=== PATIENT | female | born 1935 | race Caucasian/White ===

== ENCOUNTER → 2016-10-30 | Outpatient (REF) | payer MEDICARE | LOC: M LAB REF 16:38 | PROVIDERS: ATTEND Internal Medicine | DX: G60.9 Hereditary and idiopathic neuropathy, unspecified (principal) ==

== ENCOUNTER 2017-02-10 20:05 | Emergency (ER) | payer MEDICARE ==
[~2017-02-10] VITALS: Ht 165.1 cm; Wt 95.5 kg
[2017-02-10] MEDS ORDERED: TYLE500T78 PO (20:25)
[2017-02-10] MEDS ORDERED: FLUT1SPR2 (20:25)
[2017-02-10] MEDS ORDERED: PANT40TA2 PO (20:25)
[2017-02-10] MEDS ORDERED: BENA25CA4 PO (20:25)
[2017-02-10] MEDS ORDERED: PLAV1TAB2 PO (20:25)
[2017-02-10] MEDS ORDERED: CO Q100C10 PO (20:25)
[2017-02-10] MEDS ORDERED: CALC600T60 PO (20:25)
[2017-02-10] MEDS ORDERED: ASPI1TAB PO (20:25)
[2017-02-10] MEDS ORDERED: FURO40TA2 (20:25)
[2017-02-10] MEDS ORDERED: FUROSEMIDE 40 MG/4 ML VIAL (J1940) IV ONE (21:00)
[2017-02-10 21:52] LABS: BASO % 0.4 % (0.0-1.0); EOS # 0.1 K/mm3 (0.0-0.50); EOS % 1.3 % (0.0-3.0); LARGE UNSTAINED CELL # 0.1 K/mm3 (0.0-0.4); LARGE UNSTAINED CELL % 1.7 % (0.0-4.0); LYMPH # 1.7 K/mm3 (1.5-4.5); LYMPH % 20.6 % (24.0-44.0); MEAN CORPUSCULAR HEMOGLOBIN 32.8 pg (27.0-33.0); MEAN CORPUSCULAR VOLUME 96.3 fl (80.0-96.0); MONO # 0.5 K/mm3 (0.0-0.8); MONO % 6.1 % (0.0-5.0); NEUTROPHILS # 5.9 K/mm3 (1.8-7.7); NEUTROPHILS % 69.9 % (36.0-66.0); PLATELET COUNT, AUTOMATED 229 k/mm3 (150-450); RED CELL DISTRIBUTION WIDTH 12.9 % (11.5-14.5); WHITE BLOOD COUNT 8.4 K/mm3 (4.0-10.0)
[2017-02-10 21:56] LABS: INR 0.9
[2017-02-10 22:11] LABS: ANION GAP 6 MEQ/L (8-16); BLOOD UREA NITROGEN 21 MG/DL (7-18); CALCIUM LEVEL 9.4 MG/DL (8.8-10.2); CARBON DIOXIDE LEVEL 35 MEQ/L (21-32); CHLORIDE LEVEL 102 MEQ/L (98-107); GLOMERULAR FILTRATION RATE > 60.0 (>32); GLUCOSE, FASTING 109 MG/DL (83-110); POTASSIUM SERUM 3.4 MEQ/L (3.5-5.1); SODIUM LEVEL 143 MEQ/L (136-145)
[2017-02-10 22:20] LABS: ERYTHROCYTE SEDIMENTATION RATE 14 mm/hr (0-30)
[2017-02-10] MEDS ORDERED: POTASSIUM CHLORIDE 10 MEQ SR TABLET PO ONE (23:00)
[2017-02-10] MEDS ORDERED: CLIN150C14 PO (23:02)
[2017-02-10 23:13] VITALS: BP 157/89
--- NOTE | 2017-02-11 01:17 | REP ---
Clinical: Cellulitis. Technique: AP, lateral, bilateral oblique views of the left foot. Findings: Diffuse age related osteopenia and osteoarthritic degenerative changes are appreciated. Subluxation at the second and third metatarsophalangeal joints noted. No obvious acute fracture. No obvious periosteal reaction. Overlying soft tissue swelling without significant subcutaneous emphysema. Impression: Age-related osteopenia and osteoarthritic degenerative changes including subluxation at the second and third metatarsophalangeal joints. Osteomyelitis cannot definitively be excluded based on radiographic evaluation. Signed by Jessee Bland MD 02/11/2017 01:09 A
--- NOTE | 2017-02-11 01:18 | REP ---
Clinical: Cellulitis. Technique: AP, lateral, bilateral oblique views of the left ankle. Findings: Age-related osteopenia and osteoarthritic degenerative changes are appreciated along with diffuse soft tissue swelling. No obvious acute fracture dislocation. No subcutaneous emphysema or radiodense foreign body. Impression: Soft-tissue swelling with underlying osteopenia and osteoarthritic degenerative changes. Osteomyelitis cannot definitively be excluded based on radiographic evaluation. Signed by Jessee Bland MD 02/11/2017 01:10 A
== END 2017-02-10 23:26 | disposition home or self-care (01) ==
LOC: M ED 20:05
DX: L03.116 Cellulitis of left lower limb (principal); R60.0 Localized edema; I48.2 Chronic atrial fibrillation; E87.6 Hypokalemia; Z88.8 Allergy status to other drugs, medicaments and biological substances; Z88.5 Allergy status to narcotic agent; Z88.0 Allergy status to penicillin; Z79.899 Other long term (current) drug therapy; Z79.02 Long term (current) use of antithrombotics/antiplatelets; Z79.82 Long term (current) use of aspirin
CPT/HCPCS: 36415; 73610; 73630; 80048; 85025; 85610; 85652; 86140; 96374; 99284; J1940